=== PATIENT | female | born 1955 | race Caucasian/White ===

== ENCOUNTER 2023-05-25 23:58 | Emergency (ER) | payer MEDICARE, OTHER, SELFPAY ==
[2023-05-25 23:58] VITALS: BMI 32.9
[2023-05-26 00:19] VITALS: BP 159/88
[2023-05-26 00:53] VITALS: BP 163/76
[2023-05-26 00:56] LABS: COVID-19 Antigen Negative (Negative)
[2023-05-26 01:00] VITALS: BP 146/70
[2023-05-26] MEDS: TORADOL 30 MG IV (01:15)
[2023-05-26 01:16] LABS: % Basophils 0.4 % (0-2); % Eosinophils 5.4 % (0-6); % Immature Granulocytes 0.4 % (0-0.5); % Lymphocytes 17.9 % (20.5-51.1); % Monocytes 7.7 % (1.7-9.3); % Neutrophils 68.2 % (42.2-75.2); Absolute Eosinophils 0.6 10^3/uL (0-0.7); Absolute Immature Granulocytes 0.1 10^3/uL (0-0.05); Absolute Monocytes 0.9 10^3/uL (0.1-0.6); Absolute Neutrophils 7.8 10^3/uL (1.4-6.5); Hematocrit 34.6 % (37.0-47.0); Hemoglobin 11.2 g/dL (12.0-16.0); Mean Corp Hgb Conc. 32.4 g/dL (33.0-37.0); Mean Corpuscular Hgb 26.9 pg (27.0-31.0); Mean Corpuscular Volume 83.2 fL (81.0-99.0); Nucleated Red Blood Cells % 0 %; Platelet Count 557 10^3/uL (130-400); Red Blood Cell Count 4.16 10^6/uL (4.20-5.40); Red Cell Dist. Width 12.9 % (11.5-14.5); White Blood Cell Count 11.4 10^3/uL (4.8-10.8)
--- NOTE | 2023-05-26 01:19 | ED.GENMED ---
History of Present Illness
General
Chief Complaint: Chest Pain
Source: patient
Exam Limitations: none
Time Seen by Provider: 05/26/23 00:50
Nursing documentation reviewed up to this point in time: agreed with
Travel History
Have you had any contact with someone who has COVID-19?: No
Do you have any symptoms of coronavirus? Fever > 100 degrees, chills, cough, shortness of breath, sore throat, loss of taste or smell, muscle aches, or headache?: No
History of Present Illness
History of Present Illness:
67-year-old female presents with chest pain onset a week or so ago right-sided sharp worse with movement feel like a pulled muscle today she had left-sided pain sharp, similar to the right, has a family history of PE, had superficial phlebitis years
ago, treated surgically, nondrinker non-smoker, no personal history of CAD patient denies any rashes
Past History
Past History
ED Past Medical History: Other (Superficial phlebitis)
ED Past Surgical History: Other (Vein stripping)
Social History
Tobacco: Non-smoker
Alcohol: None
Drug: None
Personal:
Living: with family
Family History
Family History: Unable to obtain (Both mother and father with PE, the setting of the malignancy)
Review of Systems
Review of Systems
All Other Systems: ROS reviewed and negative except as documented in HPI and ROS
Constitutional: Denies fever or fatigue
EENT: Reports no symptoms
Respiratory: Denies trouble breathing
Cardiac: Reports chest pain; Denies palpitations or syncope
ABD/GI: Reports no symptoms
: Reports no symptoms
Musculoskeletal: Reports no symptoms
Skin: Reports no symptoms
Neurological: Reports no symptoms
Phy Exam
Physical Exam
Physical Exam:
Physical Exam
General: no apparent distress, not acutely ill
Neck: No jaundice
Heart: s1/s2 regular rate and rhythm, no murmur. equal radial pulses.
Lungs: no acute respiratory distress. Reproducible tenderness in the left anterior chest wall
Abdomen: Soft nontender
Neuro: alert and oriented. no focal neurological deficits
Skin: no rash
Psychiatric: well kept. interactive and cooperative
Extremities: no edema. no calf tenderness.
Scores
Heart Score for Chest Pain Patients
STEMI patient?: No
History: Slightly or Non-Suspicious
ECG: Normal
Age: >45 - <65 years
Risk Factors: 1 or 2 Risk Factors
Troponin: </= Normal Limit
Heart Score for Chest Pain Patients: 2
Heart Score Risk: 2.5% MACE over next 6 weeks
Course
Orders/Labs/Results
Orders:
Orders
05/26/23 00:10
EKG [Electrocardiogram (*1)] Urgent
Reason for Study: Chest Pain
EKG- Treatment ONCE
05/26/23 00:31
COVID-19 Antigen Urgent
Source: Nasal Swab
Influenza A+B Rapid Molecular Urgent
PEREZ Source: Nasal Swab
Specimen Description:
05/26/23 00:57
Ketorolac [Toradol] 30 mg IV NOW STA
05/26/23 01:09
Complete Blood Count/With Diff Urgent
Comprehensive Metabolic Panel Urgent
D-Dimer Urgent
Magnesium Urgent
Troponin I Urgent
05/26/23 01:20
CR Chest - 2 Views Urgent
Comment:
Reason For Exam: cp
05/26/23 01:37
CT Chest Pe Study Urgent
Comment:
Reason For Exam: cp ddimer up
05/26/23 02:26
Acetaminophen [Tylenol] 1,000 mg PO NOW STA
LevoFLOXacin [Levaquin] 500 mg PO NOW STA
Abnormal Lab Results
05/26/23
01:09
WBC 11.4 H 10^3/uL
(4.8-10.8)
RBC 4.16 L 10^6/uL
(4.20-5.40)
Hgb 11.2 L g/dL
(12.0-16.0)
Hct 34.6 L %
(37.0-47.0)
MCH 26.9 L pg
(27.0-31.0)
MCHC 32.4 L g/dL
(33.0-37.0)
Plt Count 557 H 10^3/uL
(130-400)
Abs Immat Gran (auto) 0.1 H 10^3/uL
(0-0.05)
Absolute Neuts (auto) 7.8 H 10^3/uL
(1.4-6.5)
Absolute Monos (auto) 0.9 H 10^3/uL
(0.1-0.6)
Lymphocytes % 17.9 L %
(20.5-51.1)
D-Dimer 1.46 H ug/mlFEU
(0.00-0.50)
BUN 18 H mg/dl
(7-17)
Glucose 112 H mg/dl
(70-99)
Alkaline Phosphatase 160 H U/L
(38-126)
05/26/23 01:09
05/26/23 01:09
Vital Signs
Initial and Last Documented VS:
Initial Vital Signs
Temp Pulse Resp BP Pulse Ox
100.0 F 92 18 159/88 96
05/26/23 00:19 05/26/23 00:19 05/26/23 00:19 05/26/23 00:19 05/26/23 00:19
Last Documented Vital Signs
Temp Pulse Resp BP Pulse Ox
100.0 F 92 15 146/70 98
05/26/23 00:19 05/26/23 01:15 05/26/23 01:00 05/26/23 01:00 05/26/23 01:20
MDM/Problems Addressed
Differential Diagnosis Includes:
Muscle strain pneumothorax pneumonia PE doubt ACS
MDM/Problems Addressed:
Chest pain
*Radiology
Radiology exam reviewed: preliminary read by ED provider
*Pulse Oximetry
Patient hypoxic: no
*EKG
Interpreted by ED Provider?: Yes
Interpretation: normal
Comparison EKG: no comparison EKG present
Heart Rate: 78
Rate: normal
Rhythm: sinus
Ischemia: no ischemia
*Strapper Interpretation
Rate: normal
Interpretation: normal
Heart Rate: 78
Rhythm: sinus
*Critical Care Note
Total Time (30-74mins, 75-104mins- exclusive of procedures): Not Applicable
Update Note
Update Note:
140 a.m. D-dimer noted will send for CT of the chest
Chest x-ray noted--- infiltrate versus pulmonary infarct by my preliminary review CT is pending
2:[address] chest reviewed with [facility] no PE does have multilobar pneumonia reviewed with patient she is feeling better after Toradol, oxygenating well, will start antibiotics have her follow-up with her PCP ER if worsening symptoms
ED Attending Note
-
Portions of this chart may have been created with voice recognition software.� Occasional wrong word or��sound alike� substitutions may have occurred due to the inherent limitations of voice recognition software.
Discharge Plan
Departure
Patient Disposition: Home (Routine Discharge)
Date of Disposition: 05/26/23
Time of Disposition: 02:29
Patient with high blood pressure during this ER visit?: No
Condition: Good
Covid-19: Negative COVID-19
Discharge Problem:
Pneumonia
Instructions: Pneumonia, Adult ED, Pneumonia
Prescriptions:
New
levofloxacin 500 mg tablet
500 mg PO DAILY 10 Days Qty: 10 0RF
albuterol sulfate [ProAir HFA] 90 mcg/actuation HFA aerosol inhaler
2 puff inhalation Q4HPRN PRN (Reason: shortness of breath) Qty: 8.5 0RF
ibuprofen 600 mg tablet
600 mg PO Q6H PRN (Reason: fever or pain) Qty: 20 0RF
Activity Restrictions/Additional Instructions:
Drink plenty of fluids
Tylenol or ibuprofen for fever body aches and pain
Albuterol 2 puffs every 4-6 hours for cough
Antibiotics as prescribed
Call your family doctor tomorrow to arrange follow-up care, return to the ER for worsening symptoms
Interventions
Interventions:
*Risk Screen - Suicide Last Done: 05/26/23 00:19
*General Assessment Last Done: 05/26/23 00:19
*Neglect/Abuse Screening Last Done: 05/26/23 00:19
ED- Fall Risk Assessment Last Done: 05/26/23 00:19
*ED COVID-19 Vaccine History Last Done: 05/26/23 00:19
ED- Cardiac Assessment Last Done: 05/26/23 01:20
[2023-05-26 01:30] LABS: D-Dimer 1.46 ug/mlFEU (0.00-0.50)
[2023-05-26 01:32] LABS: ALT (SGPT) 22 U/L (0-35); AST (SGOT) 22 U/L (14-36); Albumin 3.7 g/dl (3.5-5.0); Alkaline Phosphatase 160 U/L (38-126); Blood Urea Nitrogen 18 mg/dl (7-17); Carbon Dioxide 27 mmol/L (22-30); Chloride 105 mmol/L (98-107); Estimated Creatinine Clearance 94 ml/min; Glucose 112 mg/dl (70-99); Magnesium 2.3 mg/dl (1.6-2.3); Potassium 4.6 mmol/L (3.5-5.1); Sodium 138 mmol/L (135-145); Total Bilirubin 0.4 mg/dl (0.2-1.3); eGFR > 60.00
[2023-05-26 01:44] LABS: Troponin I < 0.012 ng/ml
[2023-05-26 02:00] VITALS: BP 137/64
[2023-05-26] MEDS: TYLENOL 1000 MG PO (02:34)
[2023-05-26] MEDS: LEVAQUIN 500 MG PO (02:34)
[2023-05-26 02:41] VITALS: BP 144/69
== END 2023-05-26 02:52 | disposition home or self-care (01) ==
LOC: EMR 23:58
PROVIDERS: Emergency Medicine; EMERGENCY PHYSICIAN Emergency Medicine
DX: J18.9 Pneumonia, unspecified organism (principal); Z11.52 Encounter for screening for COVID-19
CPT/HCPCS: 99285; 96374; 71046; 71275; 80053; 83735; 84484; 85025; 85379; 87502; 87811; 93005; Q9967

== ENCOUNTER → 2023-06-28 08:52 | Outpatient (REF) | payer MEDICARE, OTHER, SELFPAY ==
[2023-06-28 11:48] LABS: % Basophils 0.6 % (0-2); % Eosinophils 4.6 % (0-6); % Immature Granulocytes 0.2 % (0-0.5); % Lymphocytes 17.8 % (20.5-51.1); % Monocytes 8.2 % (1.7-9.3); % Neutrophils 68.6 % (42.2-75.2); Absolute Basophils 0.1 10^3/uL (0-0.2); Absolute Eosinophils 0.4 10^3/uL (0-0.7); Absolute Lymphocytes 1.7 10^3/uL (1.2-3.4); Absolute Monocytes 0.8 10^3/uL (0.1-0.6); Absolute Neutrophils 6.5 10^3/uL (1.4-6.5); Hematocrit 36.7 % (37.0-47.0); Hemoglobin 11.9 g/dL (12.0-16.0); Mean Corp Hgb Conc. 32.4 g/dL (33.0-37.0); Mean Corpuscular Hgb 26.8 pg (27.0-31.0); Mean Corpuscular Volume 82.7 fL (81.0-99.0); Mean Platelet Volume 9.4 fL (7.4-10.4); Nucleated Red Blood Cells % 0 %; Platelet Count 375 10^3/uL (130-400); Red Blood Cell Count 4.44 10^6/uL (4.20-5.40); Red Cell Dist. Width 15.1 % (11.5-14.5); White Blood Cell Count 9.4 10^3/uL (4.8-10.8)
== END ==
LOC: HWLAB 08:52
PROVIDERS: ATTENDING PHYSICIAN Physician Assistant
DX: J18.9 Pneumonia, unspecified organism (principal)
CPT/HCPCS: 36415; 71046; 85025

== ENCOUNTER → 2023-08-29 11:34 | Outpatient (REF) | payer MEDICARE, OTHER, SELFPAY | LOC: HWRAD 11:34 | PROVIDERS: ATTENDING PHYSICIAN Nurse Practitioner Adult Health; FAMILY PHYSICIAN Family Medicine | DX: Z87.01 Personal history of pneumonia (recurrent) (principal); J98.4 Other disorders of lung | CPT/HCPCS: 71250 ==

== ENCOUNTER → 2024-03-15 11:29 | Outpatient (REF) | payer MEDICARE, OTHER, SELFPAY | LOC: HWRAD 11:29 | PROVIDERS: ATTENDING PHYSICIAN Nurse Practitioner Family | DX: J40 Bronchitis, not specified as acute or chronic (principal) | CPT/HCPCS: 71046 ==

== ENCOUNTER → 2024-04-19 10:19 | Outpatient (REF) | payer MEDICARE, OTHER, SELFPAY | LOC: HWRAD 10:19 | PROVIDERS: ATTENDING PHYSICIAN Nurse Practitioner Adult Health; FAMILY PHYSICIAN Physician Assistant | DX: R91.8 Other nonspecific abnormal finding of lung field (principal) | CPT/HCPCS: 71250 ==

== ENCOUNTER → 2024-07-17 07:13 | Outpatient (REF) | payer MEDICARE, OTHER, SELFPAY ==
[2024-07-17 09:14] LABS: % Basophils 0.9 % (0-2); % Eosinophils 7.5 % (0-6); % Immature Granulocytes 0.3 % (0-0.5); % Lymphocytes 31.5 % (20.5-51.1); % Monocytes 8.7 % (1.7-9.3); % Neutrophils 51.1 % (42.2-75.2); Absolute Basophils 0.1 10^3/uL (0-0.2); Absolute Eosinophils 0.5 10^3/uL (0-0.7); Absolute Lymphocytes 2.2 10^3/uL (1.2-3.4); Absolute Monocytes 0.6 10^3/uL (0.1-0.6); Absolute Neutrophils 3.5 10^3/uL (1.4-6.5); Hematocrit 40.5 % (37.0-47.0); Hemoglobin 13.7 g/dL (12.0-16.0); Mean Corp Hgb Conc. 33.8 g/dL (33.0-37.0); Mean Corpuscular Hgb 29.7 pg (27.0-31.0); Mean Corpuscular Volume 87.7 fL (81.0-99.0); Mean Platelet Volume 9.5 fL (7.4-10.4); Nucleated Red Blood Cells % 0 %; Platelet Count 282 10^3/uL (130-400); Red Blood Cell Count 4.62 10^6/uL (4.20-5.40); Red Cell Dist. Width 13.1 % (11.5-14.5); White Blood Cell Count 6.9 10^3/uL (4.8-10.8)
[2024-07-17 09:25] LABS: ALT (SGPT) 30 U/L (0-35); AST (SGOT) 23 U/L (14-36); Albumin 3.9 g/dl (3.5-5.0); Alkaline Phosphatase 59 U/L (38-126); Blood Urea Nitrogen 16 mg/dl (7-17); Calcium 9.6 mg/dl (8.4-10.2); Carbon Dioxide 24 mmol/L (22-30); Chloride 109 mmol/L (98-107); Glucose 112 mg/dl (70-99); HDL Cholesterol 53 mg/dl; LDL Cholesterol, Calculated 130 mg/dl; Potassium 4.3 mmol/L (3.5-5.1); Sodium 143 mmol/L (135-145); Total Bilirubin 0.6 mg/dl (0.2-1.3); Total Cholesterol 217 mg/dl (50-199); Total Protein 6.5 g/dl (6.3-8.2); Triglyceride 173 mg/dl (10-149); Very Low Density Lipoprotein 34 mg/dl (0-30); eGFR > 60.00
[2024-07-17 11:05] LABS: Glycohemoglobin (HgbA1c) 5.8 % (4.0-5.6)
== END ==
LOC: HWLAB 07:13
PROVIDERS: ATTENDING PHYSICIAN Physician Assistant
DX: E74.39 Other disorders of intestinal carbohydrate absorption (principal); E78.5 Hyperlipidemia, unspecified
CPT/HCPCS: 36415; 80053; 80061; 83036; 85025

== ENCOUNTER → 2025-01-22 07:40 | Outpatient (REF) | payer MEDICARE, OTHER, SELFPAY ==
[2025-01-22 10:46] LABS: ALT (SGPT) 22 U/L (0-35); AST (SGOT) 20 U/L (14-36); Albumin 4.3 g/dl (3.5-5.0); Alkaline Phosphatase 67 U/L (38-126); Blood Urea Nitrogen 19 mg/dl (7-17); Calcium 9.2 mg/dl (8.4-10.2); Carbon Dioxide 28 mmol/L (22-30); Chloride 103 mmol/L (98-107); Glucose 110 mg/dl (70-99); HDL Cholesterol 55 mg/dl; LDL Cholesterol, Calculated 155 mg/dl; Potassium 4.4 mmol/L (3.5-5.1); Sodium 137 mmol/L (135-145); Total Protein 7.2 g/dl (6.3-8.2); Very Low Density Lipoprotein 30 mg/dl (0-30); eGFR > 60.00
[2025-01-22 12:03] LABS: Glycohemoglobin (HgbA1c) 5.8 % (4.0-5.9)
== END ==
LOC: HWLAB 07:40
PROVIDERS: ATTENDING PHYSICIAN Physician Assistant
DX: E74.39 Other disorders of intestinal carbohydrate absorption (principal); E78.5 Hyperlipidemia, unspecified; R03.0 Elevated blood-pressure reading, without diagnosis of hypertension
CPT/HCPCS: 36415; 80053; 80061; 83036